=== PATIENT | male | born 1980 | race Caucasian/White ===

== ENCOUNTER 2024-10-18 10:36 | Emergency (ER) | payer SELFPAY ==
[2024-10-18 10:38] VITALS: BP 203/128
[2024-10-18 10:44] LABS: Glucose - Point of Care 173 mg/dl (70-99)
--- NOTE | 2024-10-18 11:24 | ED.GENMED ---
History of Present Illness
General
Chief Complaint: Abdominal Symptoms
Source: patient
Exam Limitations: none
Time Seen by Provider: 10/18/24 11:16
Nursing documentation reviewed up to this point in time: agreed with
History of Present Illness
History of Present Illness:
43-year-old male presents to the ER for evaluation. Patient reports he has been under a lot of stress recently with getting his kids ready for the first day of school and while dropping his kids off at school felt very nauseous and jittery. He had
no associated chest pain or shortness of breath. He had no blurred vision or headache. The school nurse gave him something to eat and he felt much better.
He does report that he was drinking alcohol last night and this morning had a cup of coffee muffin and a cigarette.
Currently he has no symptoms.
He currently has no primary care provider.
Phy Exam
General Physical Exam
General Presentation: no apparent distress
General age: appears stated age
General Skin: warm and dry
General Habitus: normal
General Mental: alert
General Hydration: appears well hydrated
Cardiovascular Exam
Cardiovascular Exam: regular rate/rhythm, no murmur and normal peripheral pulses
Pulmonary Exam
Pulmonary Exam: lungs clear and no respiratory distress
Gastrointestinal Exam
Gastrointestinal Exam: non tender and soft
Neurological Exam
Neurological Exam: alert and oriented x3
Musculoskeletal Exam
Musculoskeletal Exam: full ROM
Skin Exam
Skin Exam: normal color and warm/dry
Psychiatric Exam
Psychiatric Exam: normal mood/affect
Course
Orders/Labs/Results
Orders:
Orders
10/18/24 10:44
Electrocardiogram (*1) Urgent
Reason for Study: Chest Pain
EKG- Treatment ONCE
10/18/24 11:32
CBC/With Diff [Complete Blood Count/With Diff] Urgent
CMP [Comprehensive Metabolic Panel] Urgent
Lipase Urgent
Urinalysis Reflex To Culture Urgent
Date Specimen was Collected: 10/18/24
Time Specimen was Collected: 11:25
Urine Microscopic Reflex Cult Urgent
10/18/24 14:08
Troponin I Urgent
Abnormal Lab Results
10/18/24 10/18/24
10:41 11:32
Absolute Lymphs (auto) 1.0 L 10^3/uL
(1.2-3.4)
Immature Gran % 0.6 H %
(0-0.5)
Neutrophils % 76.8 H %
(42.2-75.2)
Lymphocytes % 14.2 L %
(20.5-51.1)
Glucose 142 H mg/dl
(70-99)
ALT 52 H U/L
(0-50)
Urine Albumin (Reflex) 2+ A
(Neg - Trace)
POC Glucose 173 H mg/dl
(70-99)
10/18/24 11:32
10/18/24 11:32
Vital Signs
Initial and Last Documented VS:
Initial Vital Signs
Temp Pulse Resp BP Pulse Ox
98.5 F 89 20 203/128 97
10/18/24 10:38 10/18/24 10:38 10/18/24 10:38 10/18/24 10:38 10/18/24 10:38
Last Documented Vital Signs
Temp Pulse Resp BP Pulse Ox
98.5 F 87 12 170/113 96
10/18/24 10:38 10/18/24 14:00 10/18/24 14:00 10/18/24 14:00 10/18/24 14:00
MDM/Problems Addressed
MDM/Problems Addressed:
As documented patient is a 43-year-old male who presented with an episode of nausea that occurred this morning relieved after eating. He reports he was under a lot of stress getting his kids off to school had a cigarette and had only a small piece
of muffin and a couple coffee but nothing else to eat. Patient presents awake alert no acute distress found to be hypertensive here in the ER. He is a smoker. He had no chest pain no shortness of breath.
No associated abdominal pain no recent fever chills. He is hypertensive however labs are unremarkable including normal kidney function normal cardiac troponin no acute findings and EKG.
Patient has been hypertensive here as discussed a physician will start on low-dose hydrochlorothiazide. I did review with patient low-sodium diet smoking cessation and the importance of following up with family practice clinic.
he does not have a family doctor.
*Pulse Oximetry
SaO2: 97
Oxygen Mode of Delivery: Room air
Patient hypoxic: no
*EKG
Interpreted by ED Provider?: Yes
Heart Rate: 91
Rate: normal
Rhythm: sinus
Ischemia: no ischemia
*Critical Care Note
Total Time (30-74mins, 75-104mins- exclusive of procedures): Not Applicable
ED Attending Note
-
Portions of this chart may have been created with voice recognition software.� Occasional wrong word or��sound alike� substitutions may have occurred due to the inherent limitations of voice recognition software.
Discharge Plan
Departure
Patient Disposition: Home (Routine Discharge)
Date of Disposition: 10/18/24
Time of Disposition: 14:52
Patient with high blood pressure during this ER visit?: Yes
Condition: Fair
Covid-19: Not Applicable
Discharge Problem:
Nausea
Instructions: BLOOD PRESSURE
Prescriptions:
New
hydrochlorothiazide 25 mg tablet
25 mg PO DAILY Qty: 30 0RF
Referrals:
[facility] [Provider Group]
[facility] [Outside]
NONE,* [Family Provider, Internal Medicine]
Activity Restrictions/Additional Instructions:
As discussed you were found to have elevated blood pressure here in the ER.
your labs were unremarkable. Please follow the low-sodium DASH diet.
Stop smoking
Also a prescription for blood pressure medicine sent to the pharmacy take as directed.
Please follow-up closely with family practice clinic in the next several days. Call today or tomorrow to make an appointment. Return if any worsening of symptoms
Interventions
Interventions:
*Risk Screen - Suicide Last Done: 10/18/24 10:38
*General Assessment Last Done: 10/18/24 10:38
*Neglect/Abuse Screening Last Done: 10/18/24 10:38
YG-Urcitg-Uyrfreakfl Assessment Last Done: 10/18/24 11:42
ED- Cardiac Assessment Last Done: 10/18/24 11:42
ED- Neurological Assessment Last Done: 10/18/24 11:42
ED- Pulmonary Assessment Last Done: 10/18/24 11:42
Discharge Date and Time
Print Language: GERMAN
[2024-10-18 11:42] VITALS: BMI 34.9
[2024-10-18 11:42] LABS: Urine Character Clear (Clear)
[2024-10-18 11:43] LABS: Hematocrit 44.8 % (39.0-52.0); Hemoglobin 15.3 g/dL (13.0-18.0); Mean Corp Hgb Conc. 34.2 g/dL (33.0-37.0); Mean Corpuscular Volume 87.5 fL (80.0-94.0); Nucleated Red Blood Cells % 0 % (-); Platelet Count 152 10^3/uL (130-400); Red Cell Dist. Width 12.1 % (11.5-14.5)
[2024-10-18 11:50] LABS: Urine Squamous Cell 0-2 /LPF (Few)
[2024-10-18 11:51] LABS: Urine Red Blood Cell 0-2 /HPF (0-2); Urine White Cell 0-2 /HPF (0-5)
[2024-10-18 11:55] LABS: ALT (SGPT) 52 U/L (0-50); AST (SGOT) 31 U/L (17-59); Albumin 4.7 g/dl (3.5-5.0); Alkaline Phosphatase 91 U/L (38-126); Blood Urea Nitrogen 16 mg/dl (9-20); Calcium 9.5 mg/dl (8.4-10.2); Carbon Dioxide 28 mmol/L (22-30); Chloride 103 mmol/L (98-107); Estimated Creatinine Clearance > 125 ml/min; Glucose 142 mg/dl (70-99); Lipase 70 U/L (23-300); Potassium 4.2 mmol/L (3.5-5.1); Sodium 137 mmol/L (135-145); Total Protein 7.5 g/dl (6.3-8.2); eGFR > 60.00
[2024-10-18 12:00] VITALS: BP 166/107
[2024-10-18 13:00] VITALS: BP 153/104
[2024-10-18 13:29] VITALS: BP 171/107
[2024-10-18 14:00] VITALS: BP 170/113
[2024-10-18 14:43] LABS: Troponin I < 0.012 ng/ml
== END 2024-10-18 15:16 | disposition home or self-care (01) ==
LOC: EMR 10:36
PROVIDERS: Nurse Practitioner; EMERGENCY PHYSICIAN Emergency Medicine
DX: R11.0 Nausea (principal); F17.200 Nicotine dependence, unspecified, uncomplicated; I10 Essential (primary) hypertension
CPT/HCPCS: 99283; 80053; 81003; 81015; 82962; 83690; 84484; 85025; 93005

== ENCOUNTER 2024-11-05 23:06 | Emergency (ER) | payer SELFPAY ==
[2024-11-05 23:16] VITALS: BP 136/96
--- NOTE | 2024-11-06 00:34 | ED.GENMED ---
History of Present Illness
General
Chief Complaint: Anxiety
Source: patient
Exam Limitations: none
Time Seen by Provider: 11/05/24 23:58
Nursing documentation reviewed up to this point in time: agreed with
History of Present Illness
History of Present Illness:
Patient presents to ED secondary to sudden onset of palpitations, while he was at home this evening. Patient wanted to make sure that he was not having any heart issues. Patient feels as though he was having a panic attack, which he has
experienced a number of times in the past. Patient has never been evaluated formally for potential panic attack. Recently, patient has been under increased stress, secondary to children at home along with his work situation. Denies fever or
chills. Denies chest pain. Denies shortness of breath. Denies nausea or vomiting. Denies dizziness. Denies diaphoresis. At the time exam in ED, patient states that he feels much improved and has been able to slow his heart rate down, now that
he realizes he is having a panic attack
Review of Systems
Review of Systems
Allergies reviewed?: Yes
All Other Systems: ROS reviewed and negative except as documented in HPI and ROS
Constitutional: Reports no symptoms; Denies fever
Respiratory: Reports no symptoms; Denies trouble breathing
Cardiac: Reports palpitations; Denies chest pain or diaphoresis
ABD/GI: Reports no symptoms
Musculoskeletal: Reports no symptoms
Skin: Reports no symptoms
Neurological: Reports no symptoms
Phy Exam
Physical Exam
Physical Exam:
Physical Exam
General: no apparent distress, not acutely ill. afebrile
Head: nc/at. eomi
Neck: supple. no meningeal signs
Heart: s1/s2 regular rate and rhythm
Lungs: no acute respiratory distress. clear bilaterally
Abdomen: normal bowel sounds. not tender.
Neuro: alert and oriented x 3. no focal neurological deficits
Skin: no rash
Psychiatric: well kept. interactive and cooperative
Extremities: no edema. no calf tenderness.
Course
Vital Signs
Initial and Last Documented VS:
Initial Vital Signs
Temp Pulse Resp BP Pulse Ox
97.8 F 98 20 136/96 96
11/05/24 23:16 11/05/24 23:16 11/05/24 23:16 11/05/24 23:16 11/05/24 23:16
Last Documented Vital Signs
Temp Pulse Resp BP Pulse Ox
97.8 F 98 20 136/96 96
11/05/24 23:16 11/05/24 23:16 11/05/24 23:16 11/05/24 23:16 11/06/24 00:39
MDM/Problems Addressed
MDM/Problems Addressed:
History and exam consistent with likely an anxiety disorder versus panic attack. Patient otherwise is afebrile, hemodynamically stable, and without any acute distress. As patient is currently uninsured, patient will be advised to follow-up with
[facility] medical clinic at [facility] for consultation. In addition, outpatient resource for [facility], to be followed by by harvest worker fruit. Patient otherwise is afebrile, hemodynamically stable, and appears
comfortable, at time of discharge, to the care of his spouse. Patient will be given short course of Ativan, to be used, as needed.
*Pulse Oximetry
SaO2: 96
Oxygen Mode of Delivery: Room air
Patient hypoxic: no
*Critical Care Note
Total Time (30-74mins, 75-104mins- exclusive of procedures): Not Applicable
ED Attending Note
-
Portions of this chart may have been created with voice recognition software.� Occasional wrong word or��sound alike� substitutions may have occurred due to the inherent limitations of voice recognition software.
Discharge Plan
Departure
Patient Disposition: Home (Routine Discharge)
Date of Disposition: 11/06/24
Time of Disposition: 00:38
Patient with high blood pressure during this ER visit?: Yes
Condition: Good
Discharge Problem:
Panic attack
Instructions: Panic Disorder (DC)
Prescriptions:
New
lorazepam [Ativan] 0.5 mg tablet
0.5 mg PO TID PRN (Reason: anxiety) Qty: 7 0RF
No Action
hydrochlorothiazide 25 mg tablet
25 mg PO DAILY Qty: 30 0RF
Activity Restrictions/Additional Instructions:
As discussed, please follow-up with medical clinic at [facility] or referred outpatient [facility] for reevaluation. Your prescription has been sent electronically to [facility] pharmacy in [place].
Interventions
Interventions:
*Risk Screen - Suicide Last Done: 11/05/24 23:16
*General Assessment Last Done: 11/06/24 00:00
*Neglect/Abuse Screening Last Done: 11/05/24 23:16
*Nursing Disposition Last Done: 11/06/24 01:16
ED-Psychological Assessment Last Done: 11/06/24 00:00
Discharge Date and Time
Discharge Date/Time: 11/06/24 01:17
Print Language: WOLOF
== END 2024-11-06 01:17 | disposition home or self-care (01) ==
LOC: EMR 23:06
PROVIDERS: EMERGENCY PHYSICIAN Emergency Medicine
DX: F41.0 Panic disorder [episodic paroxysmal anxiety] (principal); Z59.71 Insufficient health insurance coverage
CPT/HCPCS: 99282

== ENCOUNTER 2024-12-07 11:34 | Emergency (ER) | payer SELFPAY ==
[2024-12-07 11:35] VITALS: BP 139/91
--- NOTE | 2024-12-07 14:45 | ED.GENMED ---
History of Present Illness
General
Chief Complaint: Prescription Refill
Time Seen by Provider: 12/07/24 12:01
History of Present Illness
History of Present Illness:
43-year-old male presents requesting a medication refill. He is currently without health insurance and opted to come to the emergency department for his refill, has not taken his blood pressure medication in 1 week. Denies chest pain or dyspnea.
Review of Systems
Review of Systems
Allergies reviewed?: Yes
All Other Systems: ROS reviewed and negative except as documented in HPI and ROS
Phy Exam
Physical Exam
Physical Exam:
GEN: Well appearing, NAD, WDWN
HEENT: Oral mucosa moist, no scleral icterus
Cardiac: Regular rate
Lung: No respiratory distress, no tachypnea
MSK: No gross deformity or injuries
Skin: Good color, no pallor or jaundice, no rashes
Neuro: AO x3, moves all extremities freely
Psych: Calm, cooperative
Course
Vital Signs
Initial and Last Documented VS:
Initial Vital Signs
Temp Pulse Resp BP Pulse Ox
98.4 F 89 18 139/91 97
12/07/24 11:35 12/07/24 11:35 12/07/24 11:35 12/07/24 11:35 12/07/24 11:35
Last Documented Vital Signs
Temp Pulse Resp BP Pulse Ox
98.4 F 89 18 139/91 97
12/07/24 11:35 12/07/24 11:35 12/07/24 11:35 12/07/24 11:35 12/07/24 14:47
MDM/Problems Addressed
MDM/Problems Addressed:
Patient appears stable with no other complaints, 1 month refill provided
*Pulse Oximetry
SaO2: 97
Oxygen Mode of Delivery: Room air
Patient hypoxic: no
*Critical Care Note
Total Time (30-74mins, 75-104mins- exclusive of procedures): Not Applicable
ED Attending Note
-
Portions of this chart may have been created with voice recognition software.� Occasional wrong word or��sound alike� substitutions may have occurred due to the inherent limitations of voice recognition software.
Discharge Plan
Departure
Patient Disposition: Home (Routine Discharge)
Date of Disposition: 12/07/24
Time of Disposition: 12:15
Patient with high blood pressure during this ER visit?: No
Discharge Problem:
Encounter for medication refill
Instructions: BLOOD PRESSURE
Prescriptions:
New
hydrochlorothiazide 25 mg tablet
25 mg PO DAILY Qty: 30 0RF
No Action
hydrochlorothiazide 25 mg tablet
25 mg PO DAILY Qty: 30 0RF
lorazepam [Ativan] 0.5 mg tablet
0.5 mg PO TID PRN (Reason: anxiety) Qty: 7 0RF
Interventions
Interventions:
*Risk Screen - Suicide Last Done: 12/07/24 11:35
*General Assessment Last Done: 12/07/24 11:35
*Neglect/Abuse Screening Last Done: 12/07/24 12:05
*ED- Fall Risk Assessment Last Done: 12/07/24 12:05
*Nursing Disposition Last Done: 12/07/24 12:20
Discharge Date and Time
Discharge Date/Time: 12/07/24 12:20
Print Language: ANGUILLAN
== END 2024-12-07 12:20 | disposition home or self-care (01) ==
LOC: EMR 11:34
PROVIDERS: EMERGENCY PHYSICIAN Emergency Medicine
DX: Z76.0 Encounter for issue of repeat prescription (principal); Z59.71 Insufficient health insurance coverage
CPT/HCPCS: 99281

== ENCOUNTER 2025-01-11 20:28 | Emergency (ER) | payer SELFPAY ==
[2025-01-11 20:30] VITALS: BP 163/106
--- NOTE | 2025-01-11 22:25 | ED.GENMED ---
History of Present Illness
General
Chief Complaint: Prescription Refill
Source: patient
Exam Limitations: none
Time Seen by Provider: 01/11/25 22:14
History of Present Illness
History of Present Illness:
Patient here for refill of his hydrochlorothiazide 25 mg daily. Has history of hypertension. He ran out 5 days ago. He also stated that he had some palpitations while driving. No chest pain no shortness of breath. No leg swelling. No other
complaints
Phy Exam
Physical Exam
Physical Exam:
General: Well-appearing male nontoxic no acute respiratory distress
HEENT: Normal cephalic atraumatic heart: Regular rate and rhythm
Lungs: Clear no wheeze
Extremities: No cyanosis or edema
Course
Orders/Labs/Results
Orders:
Orders
01/11/25 22:25
Electrocardiogram (*1) Urgent
Reason for Study: Palpitations
EKG- Treatment ONCE
Hydrochlorothiazide [Oretic] 25 mg PO NOW STA
Vital Signs
Initial and Last Documented VS:
Initial Vital Signs
Temp Pulse Resp BP Pulse Ox
97.4 F 88 20 163/106 99
01/11/25 20:30 01/11/25 20:30 01/11/25 20:30 01/11/25 20:30 01/11/25 20:30
Last Documented Vital Signs
Temp Pulse Resp BP Pulse Ox
97.4 F 88 20 163/106 99
01/11/25 20:30 01/11/25 20:30 01/11/25 20:30 01/11/25 20:30 01/11/25 22:28
MDM/Problems Addressed
Differential Diagnosis Includes:
Patient here for refill of hydrochlorothiazide. He did complain of palpitations. EKG ordered will refill his hydrochlorothiazide and recommend he follow-up with an established with a family doctor. He states he got a new job and is waiting for
his insurance to kick in
*Pulse Oximetry
SaO2: 99
Oxygen Mode of Delivery: Room air
Patient hypoxic: no
*Critical Care Note
Total Time (30-74mins, 75-104mins- exclusive of procedures): Not Applicable
Update Note
Update Note:
EKG shows sinus rhythm with a rate of 81 no ischemic changes
ED Attending Note
-
Portions of this chart may have been created with voice recognition software.� Occasional wrong word or��sound alike� substitutions may have occurred due to the inherent limitations of voice recognition software.
Discharge Plan
Departure
Patient Disposition: Home (Routine Discharge)
Date of Disposition: 01/11/25
Time of Disposition: 23:37
Patient with high blood pressure during this ER visit?: Yes
Discharge Problem:
Hypertension
Instructions: BLOOD PRESSURE
Prescriptions:
New
hydrochlorothiazide 25 mg tablet
25 mg PO DAILY Qty: 30 1RF
No Action
hydrochlorothiazide 25 mg tablet
25 mg PO DAILY Qty: 30 0RF
lorazepam [Ativan] 0.5 mg tablet
0.5 mg PO TID PRN (Reason: anxiety) Qty: 7 0RF
hydrochlorothiazide 25 mg tablet
25 mg PO DAILY Qty: 30 0RF
Referrals:
NONE,* [Family Provider, Internal Medicine]
Activity Restrictions/Additional Instructions:
Please continue to try to establish family doctor. Take medicine as prescribed. Return if needed
Interventions
Interventions:
*Risk Screen - Suicide Last Done: 01/11/25 20:30
*General Assessment Last Done: 01/11/25 20:30
*Neglect/Abuse Screening Last Done: 01/11/25 20:30
*ED COVID-19 Vaccine History Last Done: 01/11/25 20:30
*ED Influenza Vaccine History Last Done: 01/11/25 20:30
Discharge Date and Time
Print Language: FRENCH
[2025-01-11] MEDS: ORETIC 25 MG PO (23:37)
[2025-01-11 23:40] VITALS: BP 140/100
== END 2025-01-11 23:53 | disposition home or self-care (01) ==
LOC: EMR 20:28
PROVIDERS: EMERGENCY PHYSICIAN Emergency Medicine
DX: I10 Essential (primary) hypertension (principal); R00.2 Palpitations; Z76.0 Encounter for issue of repeat prescription
CPT/HCPCS: 99283; 93005